=== PATIENT | female | born 1955 | race Caucasian/White ===

== ENCOUNTER 2021-03-31 13:38 | Inpatient (IN) ==
[2021-03-31] MEDS ORDERED: Ondansetron 4 MG/2 ML VIAL IVP PRN (18:02)
[2021-03-31] MEDS ORDERED: Naloxone 0.4 MG/ML INJ IVP PRN (18:02)
[2021-03-31] MEDS ORDERED: Benzonatate 100 MG CAPSULE PO PRN (18:05)
[2021-03-31] MEDS ORDERED: 0.9 % Sodium Chloride 1,000 ML IVC SCH (18:15)
[2021-03-31 19:56] LABS: BUN/Creatinine Ratio 28 (6-26); Blood Urea Nitrogen 15 mg/dL (8-23); Calcium 7.5 mg/dL (8.6-10.3); Carbon Dioxide 20 mEq/L (23-29); Chloride 102 mEq/L (98-107); Glucose 142 mg/dL (70-105); Osmolality,Calculated 273 (280-300); Potassium 3.5 mEq/L (3.5-5.1); Sodium 130 mEq/L (136-145); eGFR For African Americans > 60 (> 60); eGFR For Non-African Americans > 60 (> 60)
[2021-03-31] MEDS: *HR* HYDROcodone/Acet 5/325 mg TABLET PO PRN (20:29)
[2021-03-31] MEDS: Apixaban 5 MG TABLET PO SCH (20:29)
[2021-03-31] MEDS: Acyclovir 200 MG CAPSULE PO SCH (20:29)
[2021-03-31] MEDS: *HR* OxyCODONE Immed Rel 5 MG TABLET PO PRN (21:18)
[2021-04-01] MEDS: *HR* HYDROcodone/Acet 5/325 mg TABLET PO PRN (03:24)
[2021-04-01] MEDS: Morphine Sulfate ER (12 HR) 15 MG TABLET.ER PO SCH ×2 (04:23→17:47)
[2021-04-01 07:13] LABS: Basophils % 0.2 %; Hematocrit 32.6 % (35.3-44.9); Hemoglobin 10.8 g/dL (11.5-15.4); Immature Granulocytes % 0.7 % (0-4); Lymphocytes # 0.1 K/mcL (0.6-4.6); Lymphocytes % 1.1 %; Mean Corpuscular HGB Conc 33.1 g/dL (31.6-35.5); Mean Corpuscular Hemoglobin 27.4 pg (28.0-33.3); Mean Corpuscular Volume 82.7 fL (83.0-100.0); Mean Platelet Volume 10.7 fL (9.4-12.4); Monocytes # 0.3 K/mcL (0.0-1.3); Platelet Count 220 K/mcL (140-400); Red Blood Count 3.94 M/mcL (3.82-4.97); Red Cell Distribution Width 18.2 % (11.5-14.5); White Blood Count 5.4 K/mcL (4.3-11.1)
[2021-04-01] MEDS ORDERED: polyethylene glycoL 3350 17 GM POWD.PACK PO PRN (07:30)
[2021-04-01] MEDS ORDERED: Furosemide 40 MG/4 ML VIAL IVP ONE (07:31)
[2021-04-01 07:35] LABS: BUN/Creatinine Ratio 40 (6-26); Blood Urea Nitrogen 18 mg/dL (8-23); Calcium 7.5 mg/dL (8.6-10.3); Carbon Dioxide 20 mEq/L (23-29); Chloride 106 mEq/L (98-107); Chol/HDL Ratio 3.3 (0-4.9); Cholesterol 128 mg/dL (< 200); Glucose 139 mg/dL (70-105); HDL Cholesterol 39 mg/dL (40-59); LDL Cholesterol,Calculated 71 mg/dL (< 100); Magnesium 2.4 mg/dL (1.6-2.6); Osmolality,Calculated 278 (280-300); Potassium 3.9 mEq/L (3.5-5.1); Sodium 132 mEq/L (136-145); Triglycerides 90 mg/dL (< 150); eGFR For African Americans > 60 (> 60); eGFR For Non-African Americans > 60 (> 60)
[2021-04-01 07:52] LABS: Platelet Estimate Normal (Normal)
[2021-04-01] MEDS: cefTRIAXone 1,000 MG in Water for inj. (sterile) 10 ML IVP SCH (08:45)
[2021-04-01] MEDS: Dexamethasone Sodium Phos/PF 10 MG/ML VIAL IVP SCH (08:46)
[2021-04-01] MEDS: Acyclovir 200 MG CAPSULE PO SCH ×2 (08:47→21:08)
[2021-04-01] MEDS: Apixaban 5 MG TABLET PO SCH ×2 (08:47→20:00)
[2021-04-01] MEDS: Cholecalciferol (D-3) 1,000 UNIT (25MCG) TABLET PO SCH (08:47)
[2021-04-01] MEDS: Azithromycin 500 MG in 0.9 % Sodium Chloride 250 ML IVPB SCH (08:48)
[2021-04-01] MEDS ORDERED: lisinopriL 10 MG TABLET PO SCH (09:00)
[2021-04-01] MEDS ORDERED: Gabapentin 300 MG CAPSULE PO SCH (09:00)
[2021-04-01 09:21] LABS: Albumin 2.9 g/dL (3.5-5.7); Albumin/Globulin Ratio 0.9 (1.1-2.2); Bilirubin,Direct 0.1 mg/dL (0.0-0.2); Bilirubin,Indirect 0.4 mg/dL (0.0-1.0); Bilirubin,Total 0.5 mg/dL (0.3-1.0); Globulin 3.4 g/dL (2.4-3.5); Total Protein 6.3 g/dL (6.4-8.9)
[2021-04-01] MEDS: Pantoprazole 40 MG VIAL IVP SCH (10:29)
[2021-04-01] MEDS: Gabapentin 300 MG CAPSULE PO SCH ×3 (10:30→20:00)
[2021-04-01] MEDS ORDERED: Remdesivir 200 MG in 0.9 % Sodium Chloride 100 ML IVPB ONE (11:00)
[2021-04-01] MEDS: *HR* OxyCODONE Immed Rel 5 MG TABLET PO PRN ×2 (11:51→20:00)
[2021-04-02] MEDS: Acetaminophen 325 MG TABLET PO PRN (02:18)
[2021-04-02] MEDS ORDERED: 0.9 % Sodium Chloride 500 ML IVC ONE (04:26)
[2021-04-02 06:41] LABS: Hematocrit 28.8 % (35.3-44.9); Hemoglobin 9.6 g/dL (11.5-15.4); Lymphocytes # 0.1 K/mcL (0.6-4.6); Lymphocytes % 1.2 %; Mean Corpuscular HGB Conc 33.3 g/dL (31.6-35.5); Mean Corpuscular Hemoglobin 27.4 pg (28.0-33.3); Mean Corpuscular Volume 82.3 fL (83.0-100.0); Mean Platelet Volume 9.8 fL (9.4-12.4); Monocytes # 0.5 K/mcL (0.0-1.3); Monocytes % 9.3 %; Platelet Count 231 K/mcL (140-400); Red Cell Distribution Width 18.4 % (11.5-14.5); Segmented Neutrophils % 88.5 %; White Blood Count 4.9 K/mcL (4.3-11.1)
[2021-04-02 06:42] LABS: Neutrophils # 4.3 K/mcL (1.6-8.9)
[2021-04-02 06:57] LABS: Albumin 2.6 g/dL (3.5-5.7); Albumin/Globulin Ratio 0.9 (1.1-2.2); Bilirubin,Direct 0.1 mg/dL (0.0-0.2); Bilirubin,Indirect 0.3 mg/dL (0.0-1.0); Bilirubin,Total 0.4 mg/dL (0.3-1.0); Globulin 2.9 g/dL (2.4-3.5); Total Protein 5.5 g/dL (6.4-8.9)
[2021-04-02 07:01] LABS: Alanine Aminotransferase 20 Units/L (7-52); Albumin 2.6 g/dL (3.5-5.7); Albumin/Globulin Ratio 0.9 (1.1-2.2); Alkaline Phosphatase 63 Units/L (34-104); Aspartate Amino Transferase 25 Units/L (13-39); BUN/Creatinine Ratio 34 (6-26); Bilirubin,Total 0.3 mg/dL (0.3-1.0); Blood Urea Nitrogen 21 mg/dL (8-23); Carbon Dioxide 22 mEq/L (23-29); Chloride 104 mEq/L (98-107); Globulin 2.9 g/dL (2.4-3.5); Glucose 129 mg/dL (70-105); Osmolality,Calculated 281 (280-300); Potassium 3.3 mEq/L (3.5-5.1); Sodium 133 mEq/L (136-145); Total Protein 5.5 g/dL (6.4-8.9); eGFR For African Americans > 60 (> 60); eGFR For Non-African Americans > 60 (> 60)
[2021-04-02] MEDS: cefTRIAXone 1,000 MG in Water for inj. (sterile) 10 ML IVP SCH (08:00)
[2021-04-02] MEDS: Pantoprazole 40 MG VIAL IVP SCH (08:00)
[2021-04-02] MEDS: Azithromycin 500 MG in 0.9 % Sodium Chloride 250 ML IVPB SCH (08:00)
[2021-04-02] MEDS: Cholecalciferol (D-3) 1,000 UNIT (25MCG) TABLET PO SCH (08:01)
[2021-04-02] MEDS: Apixaban 5 MG TABLET PO SCH ×2 (08:01→20:59)
[2021-04-02] MEDS: *HR* OxyCODONE Immed Rel 5 MG TABLET PO PRN ×3 (08:01→20:59)
[2021-04-02] MEDS: Dexamethasone Sodium Phos/PF 10 MG/ML VIAL IVP SCH (08:02)
[2021-04-02] MEDS: Gabapentin 300 MG CAPSULE PO SCH ×3 (08:05→20:59)
[2021-04-02] MEDS: Acyclovir 200 MG CAPSULE PO SCH ×2 (08:12→20:59)
[2021-04-02] MEDS ORDERED: Potassium Chloride Elixir 20 MEQ/15 ML UDC PO ONE (08:25)
[2021-04-02] MEDS: Remdesivir 100 MG in 0.9 % Sodium Chloride 100 ML IVPB SCH (11:26)
[2021-04-02] MEDS: *HR* HYDROcodone/Acet 5/325 mg TABLET PO PRN ×2 (11:27→19:20)
[2021-04-03] MEDS: *HR* HYDROcodone/Acet 5/325 mg TABLET PO PRN ×2 (01:28→14:43)
[2021-04-03] MEDS: *HR* OxyCODONE Immed Rel 5 MG TABLET PO PRN ×3 (03:40→20:21)
[2021-04-03 08:28] LABS: Eosinophils % 0.6 %; Hematocrit 29.7 % (35.3-44.9); Hemoglobin 9.8 g/dL (11.5-15.4); Lymphocytes # 0.1 K/mcL (0.6-4.6); Lymphocytes % 3.2 %; Mean Corpuscular Hemoglobin 27.3 pg (28.0-33.3); Mean Corpuscular Volume 82.7 fL (83.0-100.0); Mean Platelet Volume 10.1 fL (9.4-12.4); Monocytes # 0.4 K/mcL (0.0-1.3); Monocytes % 12.7 %; Neutrophils # 2.6 K/mcL (1.6-8.9); Platelet Count 252 K/mcL (140-400); Red Blood Count 3.59 M/mcL (3.82-4.97); Red Cell Distribution Width 18.4 % (11.5-14.5); Segmented Neutrophils % 82.5 %; White Blood Count 3.1 K/mcL (4.3-11.1)
[2021-04-03 08:47] LABS: Albumin 2.6 g/dL (3.5-5.7); Albumin/Globulin Ratio 0.9 (1.1-2.2); Bilirubin,Indirect 0.4 mg/dL (0.0-1.0); Bilirubin,Total 0.4 mg/dL (0.3-1.0); Globulin 2.8 g/dL (2.4-3.5); Total Protein 5.4 g/dL (6.4-8.9)
[2021-04-03 08:48] LABS: BUN/Creatinine Ratio 37 (6-26); Blood Urea Nitrogen 17 mg/dL (8-23); Calcium 7.1 mg/dL (8.6-10.3); Carbon Dioxide 24 mEq/L (23-29); Chloride 106 mEq/L (98-107); Glucose 105 mg/dL (70-105); Osmolality,Calculated 280 (280-300); Sodium 134 mEq/L (136-145); eGFR For African Americans > 60 (> 60); eGFR For Non-African Americans > 60 (> 60)
[2021-04-03] MEDS: Azithromycin 500 MG in 0.9 % Sodium Chloride 250 ML IVPB SCH (08:53)
[2021-04-03] MEDS: Pantoprazole 40 MG VIAL IVP SCH (08:53)
[2021-04-03] MEDS: Acyclovir 200 MG CAPSULE PO SCH ×2 (08:54→20:13)
[2021-04-03] MEDS: Apixaban 5 MG TABLET PO SCH ×2 (08:54→20:13)
[2021-04-03] MEDS: Dexamethasone Sodium Phos/PF 10 MG/ML VIAL IVP SCH (08:54)
[2021-04-03] MEDS: cefTRIAXone 1,000 MG in Water for inj. (sterile) 10 ML IVP SCH (08:54)
[2021-04-03] MEDS: Cholecalciferol (D-3) 1,000 UNIT (25MCG) TABLET PO SCH (08:54)
[2021-04-03] MEDS: Gabapentin 300 MG CAPSULE PO SCH ×3 (08:58→20:13)
[2021-04-03 09:41] LABS: Platelet Estimate Normal (Normal)
[2021-04-03 09:42] LABS: Anisocytosis 1+ (Not Present); Schistocytes 1+ (Not Present)
[2021-04-03] MEDS: Remdesivir 100 MG in 0.9 % Sodium Chloride 100 ML IVPB SCH (10:25)
[2021-04-03] MEDS: Morphine Sulfate ER (12 HR) 15 MG TABLET.ER PO SCH (17:16)
[2021-04-04 05:05] LABS: Hematocrit 31.6 % (35.3-44.9); Hemoglobin 10.6 g/dL (11.5-15.4); Immature Granulocytes % 0.7 % (0-4); Lymphocytes # 0.1 K/mcL (0.6-4.6); Lymphocytes % 3.7 %; Mean Corpuscular HGB Conc 33.5 g/dL (31.6-35.5); Mean Corpuscular Hemoglobin 27.7 pg (28.0-33.3); Mean Corpuscular Volume 82.7 fL (83.0-100.0); Mean Platelet Volume 10.3 fL (9.4-12.4); Monocytes # 0.3 K/mcL (0.0-1.3); Monocytes % 10.4 %; Neutrophils # 2.5 K/mcL (1.6-8.9); Platelet Count 289 K/mcL (140-400); Red Blood Count 3.82 M/mcL (3.82-4.97); Red Cell Distribution Width 18.5 % (11.5-14.5); Segmented Neutrophils % 84.2 %
[2021-04-04 05:26] LABS: BUN/Creatinine Ratio 34 (6-26); Blood Urea Nitrogen 15 mg/dL (8-23); Calcium 7.1 mg/dL (8.6-10.3); Carbon Dioxide 21 mEq/L (23-29); Chloride 106 mEq/L (98-107); Glucose 95 mg/dL (70-105); Osmolality,Calculated 277 (280-300); Potassium 4.8 mEq/L (3.5-5.1); Sodium 133 mEq/L (136-145); eGFR For African Americans > 60 (> 60); eGFR For Non-African Americans > 60 (> 60)
[2021-04-04 05:28] LABS: Albumin 2.6 g/dL (3.5-5.7); Albumin/Globulin Ratio 0.9 (1.1-2.2); Bilirubin,Direct 0.1 mg/dL (0.0-0.2); Bilirubin,Indirect 0.4 mg/dL (0.0-1.0); Bilirubin,Total 0.5 mg/dL (0.3-1.0); Total Protein 5.6 g/dL (6.4-8.9)
[2021-04-04] MEDS: Morphine Sulfate ER (12 HR) 15 MG TABLET.ER PO SCH ×2 (05:42→17:26)
[2021-04-04] MEDS: Dexamethasone Sodium Phos/PF 10 MG/ML VIAL IVP SCH (10:19)
[2021-04-04] MEDS: Azithromycin 500 MG in 0.9 % Sodium Chloride 250 ML IVPB SCH (10:19)
[2021-04-04] MEDS: Furosemide 20 MG/2 ML VIAL IVP SCH ×2 (10:20→21:23)
[2021-04-04] MEDS: cefTRIAXone 1,000 MG in Water for inj. (sterile) 10 ML IVP SCH (10:20)
[2021-04-04] MEDS: Pantoprazole 40 MG VIAL IVP SCH (10:20)
[2021-04-04] MEDS: Acyclovir 200 MG CAPSULE PO SCH ×2 (10:21→21:22)
[2021-04-04] MEDS: Apixaban 5 MG TABLET PO SCH ×2 (10:21→21:23)
[2021-04-04] MEDS: *HR* OxyCODONE Immed Rel 5 MG TABLET PO PRN ×2 (10:21→18:28)
[2021-04-04] MEDS: Cholecalciferol (D-3) 1,000 UNIT (25MCG) TABLET PO SCH (10:21)
[2021-04-04] MEDS: Gabapentin 300 MG CAPSULE PO SCH ×3 (10:24→21:23)
[2021-04-04] MEDS ORDERED: Dexamethasone Sodium Phos/PF 10 MG/ML VIAL IVP ONE (10:31)
[2021-04-04] MEDS: Ipratropium 1 PUFF INHALER IH SCH ×3 (11:02→20:07)
[2021-04-04 11:48] LABS: ABG Base Excess -1 mEq/L (-2 to 3); ABG HCO3 20 mEq/L (21-27); ABG Oxygen Saturation 92 % (95-98); ABG PCO2 23 mmHg (35-45); ABG PH 7.54 pH Units (7.32-7.45); ABG PO2 55 mmHg (85-104); ABG TCO2 20 mEq/L (20-26)
[2021-04-04] MEDS: Remdesivir 100 MG in 0.9 % Sodium Chloride 100 ML IVPB SCH (12:15)
[2021-04-04] MEDS: *HR* HYDROcodone/Acet 5/325 mg TABLET PO PRN ×2 (14:16→21:31)
[2021-04-04] MEDS ORDERED: Isovue-370 500 ML BOTTLE IVP ONE (16:55)
[2021-04-04] MEDS: Zinc Sulfate 220 MG CAPSULE PO SCH (18:25)
[2021-04-04] MEDS: Thiamine (B-1) 100 MG TABLET PO SCH (18:25)
[2021-04-04] MEDS ORDERED: Acyclovir 200 MG CAPSULE PO SCH (21:00)
[2021-04-05] MEDS: Ipratropium 1 PUFF INHALER IH SCH ×6 (00:13→20:23)
[2021-04-05] MEDS: *HR* OxyCODONE Immed Rel 5 MG TABLET PO PRN ×2 (02:55→12:30)
[2021-04-05 05:15] LABS: Basophils % 0.3 %; Hematocrit 32.4 % (35.3-44.9); Hemoglobin 10.9 g/dL (11.5-15.4); Immature Granulocytes % 0.6 % (0-4); Lymphocytes # 0.1 K/mcL (0.6-4.6); Lymphocytes % 2.8 %; Mean Corpuscular HGB Conc 33.6 g/dL (31.6-35.5); Mean Corpuscular Hemoglobin 27.7 pg (28.0-33.3); Mean Corpuscular Volume 82.4 fL (83.0-100.0); Mean Platelet Volume 9.8 fL (9.4-12.4); Monocytes # 0.4 K/mcL (0.0-1.3); Monocytes % 11.3 %; Neutrophils # 2.7 K/mcL (1.6-8.9); Platelet Count 269 K/mcL (140-400); Red Blood Count 3.93 M/mcL (3.82-4.97); Red Cell Distribution Width 18.3 % (11.5-14.5); White Blood Count 3.2 K/mcL (4.3-11.1)
[2021-04-05 05:33] LABS: Albumin 2.7 g/dL (3.5-5.7); Albumin/Globulin Ratio 0.9 (1.1-2.2); Bilirubin,Direct 0.1 mg/dL (0.0-0.2); Bilirubin,Indirect 0.4 mg/dL (0.0-1.0); Bilirubin,Total 0.5 mg/dL (0.3-1.0); Total Protein 5.7 g/dL (6.4-8.9)
[2021-04-05 05:34] LABS: Alanine Aminotransferase 17 Units/L (7-52); Albumin 2.8 g/dL (3.5-5.7); Alkaline Phosphatase 69 Units/L (34-104); Aspartate Amino Transferase 12 Units/L (13-39); BUN/Creatinine Ratio 44 (6-26); Bilirubin,Total 0.5 mg/dL (0.3-1.0); Blood Urea Nitrogen 20 mg/dL (8-23); Calcium 7.4 mg/dL (8.6-10.3); Carbon Dioxide 21 mEq/L (23-29); Chloride 104 mEq/L (98-107); Globulin 2.8 g/dL (2.4-3.5); Glucose 140 mg/dL (70-105); Osmolality,Calculated 281 (280-300); Potassium 3.7 mEq/L (3.5-5.1); Sodium 133 mEq/L (136-145); Total Protein 5.6 g/dL (6.4-8.9); eGFR For African Americans > 60 (> 60); eGFR For Non-African Americans > 60 (> 60)
[2021-04-05] MEDS: Morphine Sulfate ER (12 HR) 15 MG TABLET.ER PO SCH ×2 (05:46→17:05)
[2021-04-05 05:50] LABS: Anisocytosis 1+ (Not Present); Platelet Estimate Normal (Normal)
[2021-04-05] MEDS: Azithromycin 500 MG in 0.9 % Sodium Chloride 250 ML IVPB SCH (08:51)
[2021-04-05] MEDS: Pantoprazole 40 MG VIAL IVP SCH (08:52)
[2021-04-05] MEDS: cefTRIAXone 1,000 MG in Water for inj. (sterile) 10 ML IVP SCH (08:52)
[2021-04-05] MEDS: Acyclovir 200 MG CAPSULE PO SCH ×2 (08:52→19:50)
[2021-04-05] MEDS: Dexamethasone Sodium Phos/PF 10 MG/ML VIAL IVP SCH (08:53)
[2021-04-05] MEDS: *HR* HYDROcodone/Acet 5/325 mg TABLET PO PRN (08:53)
[2021-04-05] MEDS: Apixaban 5 MG TABLET PO SCH ×2 (08:53→19:50)
[2021-04-05] MEDS: Thiamine (B-1) 100 MG TABLET PO SCH (08:53)
[2021-04-05] MEDS: Zinc Sulfate 220 MG CAPSULE PO SCH (08:53)
[2021-04-05] MEDS: Cholecalciferol (D-3) 1,000 UNIT (25MCG) TABLET PO SCH (08:53)
[2021-04-05] MEDS: Furosemide 20 MG/2 ML VIAL IVP SCH ×2 (08:53→19:51)
[2021-04-05] MEDS: Gabapentin 300 MG CAPSULE PO SCH ×3 (09:10→19:51)
[2021-04-05] MEDS: Remdesivir 100 MG in 0.9 % Sodium Chloride 100 ML IVPB SCH (12:22)
[2021-04-05] MEDS ORDERED: *HR* OxyCODONE Immed Rel 5 MG TABLET PO PRN (15:58)
[2021-04-06] MEDS: Ipratropium 1 PUFF INHALER IH SCH ×7 (04:29→23:15)
[2021-04-06] MEDS: Morphine Sulfate ER (12 HR) 15 MG TABLET.ER PO SCH ×2 (05:17→17:57)
[2021-04-06 06:23] LABS: Eosinophils % 0.2 %; Hematocrit 31.7 % (35.3-44.9); Hemoglobin 10.6 g/dL (11.5-15.4); Immature Granulocytes % 0.6 % (0-4); Lymphocytes # 0.1 K/mcL (0.6-4.6); Lymphocytes % 2.6 %; Mean Corpuscular HGB Conc 33.4 g/dL (31.6-35.5); Mean Corpuscular Volume 80.7 fL (83.0-100.0); Mean Platelet Volume 10.6 fL (9.4-12.4); Monocytes # 0.4 K/mcL (0.0-1.3); Monocytes % 9.4 %; Neutrophils # 4.1 K/mcL (1.6-8.9); Platelet Count 289 K/mcL (140-400); Red Blood Count 3.93 M/mcL (3.82-4.97); Red Cell Distribution Width 18.4 % (11.5-14.5); Segmented Neutrophils % 87.2 %; White Blood Count 4.7 K/mcL (4.3-11.1)
[2021-04-06 06:46] LABS: Albumin 2.8 g/dL (3.5-5.7); Bilirubin,Direct 0.1 mg/dL (0.0-0.2); Bilirubin,Indirect 0.5 mg/dL (0.0-1.0); Bilirubin,Total 0.6 mg/dL (0.3-1.0); Globulin 2.8 g/dL (2.4-3.5); Total Protein 5.6 g/dL (6.4-8.9)
[2021-04-06 06:49] LABS: BUN/Creatinine Ratio 53 (6-26); Blood Urea Nitrogen 24 mg/dL (8-23); Calcium 7.7 mg/dL (8.6-10.3); Carbon Dioxide 25 mEq/L (23-29); Chloride 104 mEq/L (98-107); Glucose 110 mg/dL (70-105); Osmolality,Calculated 285 (280-300); Potassium 3.5 mEq/L (3.5-5.1); Sodium 135 mEq/L (136-145); eGFR For African Americans > 60 (> 60); eGFR For Non-African Americans > 60 (> 60)
[2021-04-06] MEDS: Azithromycin 500 MG in 0.9 % Sodium Chloride 250 ML IVPB SCH (09:39)
[2021-04-06] MEDS: Gabapentin 300 MG CAPSULE PO SCH ×3 (09:40→20:22)
[2021-04-06] MEDS: Dexamethasone Sodium Phos/PF 10 MG/ML VIAL IVP SCH (09:40)
[2021-04-06] MEDS: Zinc Sulfate 220 MG CAPSULE PO SCH (09:41)
[2021-04-06] MEDS: Apixaban 5 MG TABLET PO SCH ×2 (09:41→20:22)
[2021-04-06] MEDS: Cholecalciferol (D-3) 1,000 UNIT (25MCG) TABLET PO SCH (09:41)
[2021-04-06] MEDS: Acyclovir 200 MG CAPSULE PO SCH ×2 (09:41→20:21)
[2021-04-06] MEDS: Thiamine (B-1) 100 MG TABLET PO SCH (09:41)
[2021-04-06] MEDS: cefTRIAXone 1,000 MG in Water for inj. (sterile) 10 ML IVP SCH (09:47)
[2021-04-06] MEDS: Furosemide 20 MG/2 ML VIAL IVP SCH (10:33)
[2021-04-06 12:12] LABS: ABG Base Excess 1 mEq/L (-2 to 3); ABG HCO3 23 mEq/L (21-27); ABG Oxygen Saturation 93 % (95-98); ABG PCO2 28 mmHg (35-45); ABG PH 7.53 pH Units (7.32-7.45); ABG PO2 57 mmHg (85-104); ABG TCO2 24 mEq/L (20-26)
[2021-04-06] MEDS: *HR* OxyCODONE Immed Rel 5 MG TABLET PO PRN ×2 (12:49→20:21)
[2021-04-06] MEDS: Furosemide 40 MG/4 ML VIAL IVP SCH (20:23)
[2021-04-07] MEDS: *HR* OxyCODONE Immed Rel 5 MG TABLET PO PRN ×3 (02:32→21:34)
[2021-04-07 03:27] LABS: Hematocrit 33.6 % (35.3-44.9); Hemoglobin 10.7 g/dL (11.5-15.4); Lymphocytes # 0.1 K/mcL (0.6-4.6); Lymphocytes % 2.9 %; Mean Corpuscular HGB Conc 31.8 g/dL (31.6-35.5); Mean Corpuscular Volume 81.8 fL (83.0-100.0); Mean Platelet Volume 10.5 fL (9.4-12.4); Monocytes # 0.4 K/mcL (0.0-1.3); Monocytes % 8.6 %; Neutrophils # 3.6 K/mcL (1.6-8.9); Platelet Count 274 K/mcL (140-400); Red Blood Count 4.11 M/mcL (3.82-4.97); Red Cell Distribution Width 18.5 % (11.5-14.5); Segmented Neutrophils % 87.5 %; White Blood Count 4.1 K/mcL (4.3-11.1)
[2021-04-07] MEDS: Ipratropium 1 PUFF INHALER IH SCH ×6 (03:45→23:21)
[2021-04-07 03:47] LABS: BUN/Creatinine Ratio 59 (6-26); Blood Urea Nitrogen 27 mg/dL (8-23); Calcium 7.4 mg/dL (8.6-10.3); Carbon Dioxide 22 mEq/L (23-29); Chloride 102 mEq/L (98-107); Glucose 122 mg/dL (70-105); Osmolality,Calculated 284 (280-300); Potassium 3.9 mEq/L (3.5-5.1); Sodium 134 mEq/L (136-145); eGFR For African Americans > 60 (> 60); eGFR For Non-African Americans > 60 (> 60)
[2021-04-07] MEDS: Morphine Sulfate ER (12 HR) 15 MG TABLET.ER PO SCH ×3 (05:25→19:43)
[2021-04-07 06:03] LABS: Anisocytosis 1+ (Not Present); Platelet Estimate Normal (Normal); Poikilocytosis 1+ (Not Present)
[2021-04-07] MEDS: Azithromycin 500 MG in 0.9 % Sodium Chloride 250 ML IVPB SCH (07:49)
[2021-04-07] MEDS: cefTRIAXone 1,000 MG in Water for inj. (sterile) 10 ML IVP SCH (07:49)
[2021-04-07] MEDS: Furosemide 40 MG/4 ML VIAL IVP SCH ×2 (07:49→21:33)
[2021-04-07] MEDS: Dexamethasone Sodium Phos/PF 10 MG/ML VIAL IVP SCH (07:51)
[2021-04-07] MEDS: Zinc Sulfate 220 MG CAPSULE PO SCH (07:51)
[2021-04-07] MEDS: Acyclovir 200 MG CAPSULE PO SCH ×2 (07:51→21:34)
[2021-04-07] MEDS: Apixaban 5 MG TABLET PO SCH ×2 (07:51→21:35)
[2021-04-07] MEDS: Cholecalciferol (D-3) 1,000 UNIT (25MCG) TABLET PO SCH (07:51)
[2021-04-07] MEDS: Thiamine (B-1) 100 MG TABLET PO SCH (07:51)
[2021-04-07] MEDS: Gabapentin 300 MG CAPSULE PO SCH ×3 (07:53→21:34)
[2021-04-07] MEDS ORDERED: 0.9 % Sodium Chloride 500 ML IVC ONE ×2 (11:12→14:44)
[2021-04-07] MEDS ORDERED: 0.9 % Sodium Chloride 1,000 ML IVC SCH (11:15)
[2021-04-08] MEDS: Ipratropium 1 PUFF INHALER IH SCH ×6 (03:41→23:09)
[2021-04-08] MEDS: *HR* OxyCODONE Immed Rel 5 MG TABLET PO PRN ×4 (03:53→22:03)
[2021-04-08 04:45] LABS: Hematocrit 31.5 % (35.3-44.9); Hemoglobin 10.5 g/dL (11.5-15.4); Immature Granulocytes % 0.8 % (0-4); Lymphocytes # 0.2 K/mcL (0.6-4.6); Lymphocytes % 2.9 %; Mean Corpuscular HGB Conc 33.3 g/dL (31.6-35.5); Mean Corpuscular Hemoglobin 27.1 pg (28.0-33.3); Mean Corpuscular Volume 81.4 fL (83.0-100.0); Mean Platelet Volume 10.6 fL (9.4-12.4); Monocytes # 0.3 K/mcL (0.0-1.3); Monocytes % 6.4 %; Platelet Count 257 K/mcL (140-400); Red Blood Count 3.87 M/mcL (3.82-4.97); Red Cell Distribution Width 18.2 % (11.5-14.5); Segmented Neutrophils % 89.9 %; White Blood Count 5.2 K/mcL (4.3-11.1)
[2021-04-08 04:47] LABS: Neutrophils # 4.7 K/mcL (1.6-8.9)
[2021-04-08 04:54] LABS: BUN/Creatinine Ratio 61 (6-26); Blood Urea Nitrogen 23 mg/dL (8-23); Carbon Dioxide 24 mEq/L (23-29); Chloride 104 mEq/L (98-107); Glucose 106 mg/dL (70-105); Osmolality,Calculated 286 (280-300); Potassium 3.6 mEq/L (3.5-5.1); Sodium 136 mEq/L (136-145); eGFR For African Americans > 60 (> 60); eGFR For Non-African Americans > 60 (> 60)
[2021-04-08 05:52] LABS: Anisocytosis 1+ (Not Present); Platelet Estimate Normal (Normal)
[2021-04-08] MEDS: Morphine Sulfate ER (12 HR) 15 MG TABLET.ER PO SCH ×2 (05:58→17:52)
[2021-04-08] MEDS: Cholecalciferol (D-3) 1,000 UNIT (25MCG) TABLET PO SCH (09:24)
[2021-04-08] MEDS: Zinc Sulfate 220 MG CAPSULE PO SCH (09:24)
[2021-04-08] MEDS: Thiamine (B-1) 100 MG TABLET PO SCH (09:24)
[2021-04-08] MEDS: Dexamethasone Sodium Phos/PF 10 MG/ML VIAL IVP SCH (09:24)
[2021-04-08] MEDS: Gabapentin 300 MG CAPSULE PO SCH ×3 (09:25→22:04)
[2021-04-08] MEDS: Acyclovir 200 MG CAPSULE PO SCH ×2 (09:25→22:04)
[2021-04-08] MEDS: Furosemide 40 MG/4 ML VIAL IVP SCH ×2 (09:25→22:03)
[2021-04-08] MEDS: Apixaban 5 MG TABLET PO SCH ×2 (09:25→22:03)
[2021-04-09] MEDS: Ipratropium 1 PUFF INHALER IH SCH ×6 (03:55→23:23)
[2021-04-09 05:08] LABS: Basophils % 0.2 %; Eosinophils % 0.2 %; Hematocrit 33.4 % (35.3-44.9); Hemoglobin 11.3 g/dL (11.5-15.4); Immature Granulocytes % 0.8 % (0-4); Lymphocytes # 0.2 K/mcL (0.6-4.6); Lymphocytes % 2.7 %; Mean Corpuscular HGB Conc 33.8 g/dL (31.6-35.5); Mean Corpuscular Hemoglobin 27.4 pg (28.0-33.3); Mean Corpuscular Volume 81.1 fL (83.0-100.0); Monocytes # 0.4 K/mcL (0.0-1.3); Monocytes % 6.4 %; Platelet Count 214 K/mcL (140-400); Red Blood Count 4.12 M/mcL (3.82-4.97); Red Cell Distribution Width 17.9 % (11.5-14.5); Segmented Neutrophils % 89.7 %; White Blood Count 6.3 K/mcL (4.3-11.1)
[2021-04-09 05:09] LABS: Neutrophils # 5.7 K/mcL (1.6-8.9)
[2021-04-09 05:27] LABS: BUN/Creatinine Ratio 58 (6-26); Blood Urea Nitrogen 26 mg/dL (8-23); Calcium 7.4 mg/dL (8.6-10.3); Carbon Dioxide 27 mEq/L (23-29); Chloride 100 mEq/L (98-107); Glucose 148 mg/dL (70-105); Osmolality,Calculated 284 (280-300); Potassium 3.5 mEq/L (3.5-5.1); Sodium 133 mEq/L (136-145); eGFR For African Americans > 60 (> 60); eGFR For Non-African Americans > 60 (> 60)
[2021-04-09] MEDS: Morphine Sulfate ER (12 HR) 15 MG TABLET.ER PO SCH ×2 (06:05→18:16)
[2021-04-09] MEDS: Dexamethasone Sodium Phos/PF 10 MG/ML VIAL IVP SCH (08:51)
[2021-04-09] MEDS: Furosemide 40 MG/4 ML VIAL IVP SCH ×2 (08:51→19:59)
[2021-04-09] MEDS: Acyclovir 200 MG CAPSULE PO SCH ×2 (08:52→19:58)
[2021-04-09] MEDS: Cholecalciferol (D-3) 1,000 UNIT (25MCG) TABLET PO SCH (08:52)
[2021-04-09] MEDS: *HR* OxyCODONE Immed Rel 5 MG TABLET PO PRN ×3 (08:52→23:33)
[2021-04-09] MEDS: Thiamine (B-1) 100 MG TABLET PO SCH (08:52)
[2021-04-09] MEDS: Apixaban 5 MG TABLET PO SCH ×2 (08:53→19:58)
[2021-04-09] MEDS: Zinc Sulfate 220 MG CAPSULE PO SCH (08:53)
[2021-04-09] MEDS: Gabapentin 300 MG CAPSULE PO SCH ×4 (09:07→20:00)
[2021-04-10 02:53] LABS: Basophils % 0.2 %; Eosinophils % 0.2 %; Hematocrit 36.4 % (35.3-44.9); Hemoglobin 11.6 g/dL (11.5-15.4); Lymphocytes # 0.2 K/mcL (0.6-4.6); Lymphocytes % 2.7 %; Mean Corpuscular HGB Conc 31.9 g/dL (31.6-35.5); Mean Corpuscular Volume 84.8 fL (83.0-100.0); Mean Platelet Volume 10.7 fL (9.4-12.4); Monocytes # 0.4 K/mcL (0.0-1.3); Platelet Count 207 K/mcL (140-400); Red Blood Count 4.29 M/mcL (3.82-4.97); Red Cell Distribution Width 18.6 % (11.5-14.5); Segmented Neutrophils % 88.9 %; White Blood Count 5.9 K/mcL (4.3-11.1)
[2021-04-10 03:07] LABS: Neutrophils # 5.3 K/mcL (1.6-8.9)
[2021-04-10 03:18] LABS: BUN/Creatinine Ratio 48 (6-26); Blood Urea Nitrogen 23 mg/dL (8-23); Calcium 7.3 mg/dL (8.6-10.3); Carbon Dioxide 24 mEq/L (23-29); Chloride 98 mEq/L (98-107); Glucose 117 mg/dL (70-105); Osmolality,Calculated 279 (280-300); Potassium 3.8 mEq/L (3.5-5.1); Sodium 132 mEq/L (136-145); eGFR For African Americans > 60 (> 60); eGFR For Non-African Americans > 60 (> 60)
[2021-04-10 04:07] LABS: Anisocytosis 1+ (Not Present); Platelet Estimate Normal (Normal)
[2021-04-10] MEDS: Ipratropium 1 PUFF INHALER IH SCH ×6 (04:07→23:28)
[2021-04-10] MEDS: Morphine Sulfate ER (12 HR) 15 MG TABLET.ER PO SCH ×2 (05:50→17:41)
[2021-04-10] MEDS: Apixaban 5 MG TABLET PO SCH ×2 (07:52→20:25)
[2021-04-10] MEDS: Cholecalciferol (D-3) 1,000 UNIT (25MCG) TABLET PO SCH (07:54)
[2021-04-10] MEDS: Zinc Sulfate 220 MG CAPSULE PO SCH (07:54)
[2021-04-10] MEDS: Gabapentin 300 MG CAPSULE PO SCH ×3 (07:54→20:25)
[2021-04-10] MEDS: Thiamine (B-1) 100 MG TABLET PO SCH (07:54)
[2021-04-10] MEDS: Acyclovir 200 MG CAPSULE PO SCH ×2 (07:56→20:24)
[2021-04-10] MEDS: Dexamethasone Sodium Phos/PF 10 MG/ML VIAL IVP SCH (07:58)
[2021-04-10] MEDS: *HR* OxyCODONE Immed Rel 5 MG TABLET PO PRN ×3 (08:07→21:56)
[2021-04-10] MEDS: Furosemide 40 MG/4 ML VIAL IVP SCH ×2 (10:58→20:25)
[2021-04-11 02:49] LABS: Basophils % 0.1 %; Eosinophils % 0.4 %; Hematocrit 34.7 % (35.3-44.9); Hemoglobin 11.7 g/dL (11.5-15.4); Immature Granulocytes % 1.2 % (0-4); Lymphocytes # 0.2 K/mcL (0.6-4.6); Lymphocytes % 2.8 %; Mean Corpuscular HGB Conc 33.7 g/dL (31.6-35.5); Mean Corpuscular Hemoglobin 27.5 pg (28.0-33.3); Mean Corpuscular Volume 81.6 fL (83.0-100.0); Mean Platelet Volume 10.4 fL (9.4-12.4); Monocytes # 0.6 K/mcL (0.0-1.3); Monocytes % 7.1 %; Neutrophils # 7.5 K/mcL (1.6-8.9); Platelet Count 220 K/mcL (140-400); Red Blood Count 4.25 M/mcL (3.82-4.97); Red Cell Distribution Width 17.9 % (11.5-14.5); Segmented Neutrophils % 88.4 %; White Blood Count 8.4 K/mcL (4.3-11.1)
[2021-04-11 03:13] LABS: BUN/Creatinine Ratio 47 (6-26); Blood Urea Nitrogen 25 mg/dL (8-23); Calcium 7.8 mg/dL (8.6-10.3); Carbon Dioxide 27 mEq/L (23-29); Chloride 97 mEq/L (98-107); Glucose 129 mg/dL (70-105); Osmolality,Calculated 282 (280-300); Potassium 3.6 mEq/L (3.5-5.1); Sodium 133 mEq/L (136-145); eGFR For African Americans > 60 (> 60); eGFR For Non-African Americans > 60 (> 60)
[2021-04-11] MEDS: Ipratropium 1 PUFF INHALER IH SCH ×6 (03:56→23:48)
[2021-04-11] MEDS: Morphine Sulfate ER (12 HR) 15 MG TABLET.ER PO SCH ×2 (05:55→18:44)
[2021-04-11] MEDS: *HR* OxyCODONE Immed Rel 5 MG TABLET PO PRN ×2 (09:25→19:20)
[2021-04-11] MEDS: Cholecalciferol (D-3) 1,000 UNIT (25MCG) TABLET PO SCH (09:27)
[2021-04-11] MEDS: Apixaban 5 MG TABLET PO SCH ×2 (09:27→21:21)
[2021-04-11] MEDS: Thiamine (B-1) 100 MG TABLET PO SCH (09:27)
[2021-04-11] MEDS: Acyclovir 200 MG CAPSULE PO SCH ×2 (09:27→21:20)
[2021-04-11] MEDS: Dexamethasone Sodium Phos/PF 10 MG/ML VIAL IVP SCH (09:28)
[2021-04-11] MEDS: Zinc Sulfate 220 MG CAPSULE PO SCH (09:28)
[2021-04-11] MEDS: Furosemide 40 MG/4 ML VIAL IVP SCH (09:29)
[2021-04-11] MEDS: Gabapentin 300 MG CAPSULE PO SCH ×3 (09:41→21:21)
[2021-04-11] MEDS: *HR* LORazepam 1 MG TABLET PO PRN ×2 (11:41→18:44)
[2021-04-11] MEDS: Furosemide 20 MG/2 ML VIAL IVP SCH (21:20)
[2021-04-12 01:18] LABS: Basophils % 0.1 %; Eosinophils % 0.1 %; Hematocrit 36.1 % (35.3-44.9); Hemoglobin 11.7 g/dL (11.5-15.4); Immature Granulocytes % 1.6 % (0-4); Lymphocytes # 0.2 K/mcL (0.6-4.6); Mean Corpuscular HGB Conc 32.4 g/dL (31.6-35.5); Mean Corpuscular Hemoglobin 26.2 pg (28.0-33.3); Mean Corpuscular Volume 80.8 fL (83.0-100.0); Mean Platelet Volume 10.5 fL (9.4-12.4); Monocytes # 0.5 K/mcL (0.0-1.3); Monocytes % 5.7 %; Platelet Count 242 K/mcL (140-400); Red Blood Count 4.47 M/mcL (3.82-4.97); Red Cell Distribution Width 17.8 % (11.5-14.5); Segmented Neutrophils % 90.5 %; White Blood Count 8.9 K/mcL (4.3-11.1)
[2021-04-12 01:21] LABS: Neutrophils # 8.1 K/mcL (1.6-8.9)
[2021-04-12 01:23] LABS: Platelet Estimate Normal (Normal)
[2021-04-12 01:38] LABS: BUN/Creatinine Ratio 52 (6-26); Blood Urea Nitrogen 23 mg/dL (8-23); Carbon Dioxide 30 mEq/L (23-29); Chloride 96 mEq/L (98-107); Glucose 135 mg/dL (70-105); Osmolality,Calculated 284 (280-300); Potassium 3.6 mEq/L (3.5-5.1); Sodium 134 mEq/L (136-145); eGFR For African Americans > 60 (> 60); eGFR For Non-African Americans > 60 (> 60)
[2021-04-12] MEDS: Ipratropium 1 PUFF INHALER IH SCH ×6 (03:34→23:16)
[2021-04-12] MEDS: Morphine Sulfate ER (12 HR) 15 MG TABLET.ER PO SCH ×2 (05:03→17:55)
[2021-04-12] MEDS: Dexamethasone Sodium Phos/PF 10 MG/ML VIAL IVP SCH (07:42)
[2021-04-12] MEDS: Furosemide 40 MG/4 ML VIAL IVP SCH (07:42)
[2021-04-12] MEDS: *HR* OxyCODONE Immed Rel 5 MG TABLET PO PRN ×3 (07:45→23:39)
[2021-04-12] MEDS: Cholecalciferol (D-3) 1,000 UNIT (25MCG) TABLET PO SCH (07:45)
[2021-04-12] MEDS: Thiamine (B-1) 100 MG TABLET PO SCH (07:45)
[2021-04-12] MEDS: Acyclovir 200 MG CAPSULE PO SCH ×2 (07:46→20:36)
[2021-04-12] MEDS: Zinc Sulfate 220 MG CAPSULE PO SCH (07:46)
[2021-04-12] MEDS: Apixaban 5 MG TABLET PO SCH ×2 (07:46→20:36)
[2021-04-12] MEDS: *HR* LORazepam 1 MG TABLET PO PRN ×3 (07:46→23:39)
[2021-04-12] MEDS: Gabapentin 300 MG CAPSULE PO SCH ×3 (07:47→20:36)
[2021-04-12] MEDS: Furosemide 20 MG/2 ML VIAL IVP SCH (22:22)
[2021-04-13 01:16] LABS: BUN/Creatinine Ratio 41 (6-26); Blood Urea Nitrogen 21 mg/dL (8-23); Calcium 7.9 mg/dL (8.6-10.3); Carbon Dioxide 27 mEq/L (23-29); Chloride 97 mEq/L (98-107); Glucose 202 mg/dL (70-105); Osmolality,Calculated 285 (280-300); Potassium 3.1 mEq/L (3.5-5.1); Sodium 133 mEq/L (136-145); eGFR For African Americans > 60 (> 60); eGFR For Non-African Americans > 60 (> 60)
[2021-04-13] MEDS: Ipratropium 1 PUFF INHALER IH SCH ×5 (04:03→20:34)
[2021-04-13] MEDS: Morphine Sulfate ER (12 HR) 15 MG TABLET.ER PO SCH ×2 (05:45→17:41)
[2021-04-13] MEDS: Zinc Sulfate 220 MG CAPSULE PO SCH (07:48)
[2021-04-13] MEDS: Cholecalciferol (D-3) 1,000 UNIT (25MCG) TABLET PO SCH (07:48)
[2021-04-13] MEDS: Acyclovir 200 MG CAPSULE PO SCH ×2 (07:48→19:55)
[2021-04-13] MEDS: Apixaban 5 MG TABLET PO SCH ×2 (07:49→19:55)
[2021-04-13] MEDS: Thiamine (B-1) 100 MG TABLET PO SCH (07:49)
[2021-04-13] MEDS: Dexamethasone Sodium Phos/PF 10 MG/ML VIAL IVP SCH (07:49)
[2021-04-13] MEDS: Furosemide 40 MG/4 ML VIAL IVP SCH (07:52)
[2021-04-13] MEDS: Gabapentin 300 MG CAPSULE PO SCH ×3 (07:55→19:55)
[2021-04-13] MEDS: *HR* OxyCODONE Immed Rel 5 MG TABLET PO PRN ×2 (12:53→23:06)
[2021-04-13] MEDS: Furosemide 40 MG TABLET PO SCH (17:41)
[2021-04-14] MEDS: Ipratropium 1 PUFF INHALER IH SCH ×7 (00:20→23:31)
[2021-04-14 02:47] LABS: Basophils % 0.1 %; Eosinophils % 0.1 %; Hematocrit 35.1 % (35.3-44.9); Hemoglobin 11.3 g/dL (11.5-15.4); Lymphocytes # 0.2 K/mcL (0.6-4.6); Mean Corpuscular HGB Conc 32.2 g/dL (31.6-35.5); Mean Corpuscular Hemoglobin 26.7 pg (28.0-33.3); Mean Platelet Volume 10.1 fL (9.4-12.4); Monocytes # 0.7 K/mcL (0.0-1.3); Monocytes % 6.7 %; Neutrophils # 9.7 K/mcL (1.6-8.9); Platelet Count 236 K/mcL (140-400); Red Blood Count 4.23 M/mcL (3.82-4.97); Red Cell Distribution Width 17.8 % (11.5-14.5); Segmented Neutrophils % 89.1 %; White Blood Count 10.9 K/mcL (4.3-11.1)
[2021-04-14 03:18] LABS: BUN/Creatinine Ratio 40 (6-26); Blood Urea Nitrogen 21 mg/dL (8-23); Calcium 7.9 mg/dL (8.6-10.3); Carbon Dioxide 27 mEq/L (23-29); Chloride 98 mEq/L (98-107); Glucose 128 mg/dL (70-105); Osmolality,Calculated 281 (280-300); Potassium 4.3 mEq/L (3.5-5.1); Sodium 133 mEq/L (136-145); eGFR For African Americans > 60 (> 60); eGFR For Non-African Americans > 60 (> 60)
[2021-04-14] MEDS: Morphine Sulfate ER (12 HR) 15 MG TABLET.ER PO SCH ×2 (05:42→18:25)
[2021-04-14] MEDS: Dexamethasone Sodium Phos/PF 10 MG/ML VIAL IVP SCH (09:10)
[2021-04-14] MEDS: Apixaban 5 MG TABLET PO SCH ×2 (09:11→20:17)
[2021-04-14] MEDS: Furosemide 40 MG TABLET PO SCH ×2 (09:11→17:00)
[2021-04-14] MEDS: Acyclovir 200 MG CAPSULE PO SCH ×2 (09:11→20:17)
[2021-04-14] MEDS: Zinc Sulfate 220 MG CAPSULE PO SCH (09:12)
[2021-04-14] MEDS: Thiamine (B-1) 100 MG TABLET PO SCH (09:12)
[2021-04-14] MEDS: *HR* OxyCODONE Immed Rel 5 MG TABLET PO PRN ×3 (09:12→23:53)
[2021-04-14] MEDS: Cholecalciferol (D-3) 1,000 UNIT (25MCG) TABLET PO SCH (09:12)
[2021-04-14] MEDS: Nystatin SUSP 5 ML UD.LIQ BC SCH ×4 (09:16→20:17)
[2021-04-14] MEDS: Gabapentin 300 MG CAPSULE PO SCH ×2 (09:17→20:17)
[2021-04-14] MEDS: Acetaminophen 325 MG TABLET PO PRN (14:02)
[2021-04-14] MEDS: *HR* LORazepam 1 MG TABLET PO PRN (17:00)
[2021-04-15 04:00] VITALS: TEMP 97.9
[2021-04-15] MEDS: Ipratropium 1 PUFF INHALER IH SCH ×4 (04:16→16:14)
[2021-04-15 05:29] LABS: BUN/Creatinine Ratio 45 (6-26); Blood Urea Nitrogen 24 mg/dL (8-23); Calcium 8.1 mg/dL (8.6-10.3); Carbon Dioxide 29 mEq/L (23-29); Chloride 98 mEq/L (98-107); Glucose 113 mg/dL (70-105); Osmolality,Calculated 283 (280-300); Potassium 4.4 mEq/L (3.5-5.1); Sodium 134 mEq/L (136-145); eGFR For African Americans > 60 (> 60); eGFR For Non-African Americans > 60 (> 60)
[2021-04-15] MEDS: Morphine Sulfate ER (12 HR) 15 MG TABLET.ER PO SCH (05:50)
[2021-04-15 06:51] VITALS: BP 110/63; PULSE 88
[2021-04-15] MEDS: Nystatin SUSP 5 ML UD.LIQ BC SCH ×3 (08:20→17:21)
[2021-04-15] MEDS: Cholecalciferol (D-3) 1,000 UNIT (25MCG) TABLET PO SCH (08:20)
[2021-04-15] MEDS: Zinc Sulfate 220 MG CAPSULE PO SCH (08:21)
[2021-04-15] MEDS: Thiamine (B-1) 100 MG TABLET PO SCH (08:21)
[2021-04-15] MEDS: Furosemide 40 MG TABLET PO SCH ×2 (08:21→17:21)
[2021-04-15] MEDS: *HR* LORazepam 1 MG TABLET PO PRN (08:21)
[2021-04-15] MEDS: Apixaban 5 MG TABLET PO SCH (08:21)
[2021-04-15] MEDS: *HR* OxyCODONE Immed Rel 5 MG TABLET PO PRN ×2 (11:10→17:23)
[2021-04-15] MEDS: Gabapentin 300 MG CAPSULE PO SCH ×2 (11:11→17:21)
[2021-04-15] MEDS: Dexamethasone Sodium Phos/PF 10 MG/ML VIAL IVP SCH (12:01)
[2021-04-15 15:39] VITALS: O2SAT 96
== END 2021-04-15 18:08 | disposition home health service (06) | DRG 177 ==
LOC: 3NENU → SUATTDRO 04-01 13:01 → 3ANU 04-01 19:32 → 2NENU 04-04 14:07
PROVIDERS: ADMIT Pharmacist; ATTEND Internal Medicine

== ENCOUNTER 2021-07-25 22:26 | Inpatient (IN) ==
[2021-07-26] MEDS ORDERED: Ondansetron 4 MG/2 ML VIAL IVP PRN (01:39)
[2021-07-26] MEDS ORDERED: Acetaminophen 325 MG TABLET PO PRN ×2 (01:39→07:34)
[2021-07-26] MEDS ORDERED: Naloxone 0.4 MG/ML INJ IVP PRN (01:39)
[2021-07-26 02:17] LABS: Basophils % 0.2 %; Eosinophils # 0.1 K/mcL (0.0-0.6); Eosinophils % 1.2 %; Hematocrit 31.7 % (35.3-44.9); Hemoglobin 10.2 g/dL (11.5-15.4); Immature Granulocytes % 0.4 % (0-4); Lymphocytes # 0.3 K/mcL (0.6-4.6); Lymphocytes % 5.4 %; Mean Corpuscular HGB Conc 32.2 g/dL (31.6-35.5); Mean Corpuscular Hemoglobin 29.7 pg (28.0-33.3); Mean Corpuscular Volume 92.4 fL (83.0-100.0); Mean Platelet Volume 11.5 fL (9.4-12.4); Monocytes # 1.3 K/mcL (0.0-1.3); Monocytes % 24.7 %; Neutrophils # 3.5 K/mcL (1.6-8.9); Platelet Count 143 K/mcL (140-400); Red Blood Count 3.43 M/mcL (3.82-4.97); Segmented Neutrophils % 68.1 %; White Blood Count 5.2 K/mcL (4.3-11.1)
[2021-07-26 02:28] LABS: INR 1.4; Prothrombin Time 15.1 Seconds (9.4-12.1)
[2021-07-26 02:37] LABS: Alanine Aminotransferase 9 Units/L (7-52); Albumin 2.8 g/dL (3.5-5.7); Albumin/Globulin Ratio 0.7 (1.1-2.2); Alkaline Phosphatase 63 Units/L (34-104); Aspartate Amino Transferase 15 Units/L (13-39); BUN/Creatinine Ratio 28 (6-26); Bilirubin,Direct 0.1 mg/dL (0.0-0.2); Bilirubin,Indirect 0.4 mg/dL (0.0-1.0); Bilirubin,Total 0.5 mg/dL (0.3-1.0); Blood Urea Nitrogen 19 mg/dL (8-23); Calcium 9.3 mg/dL (8.6-10.3); Carbon Dioxide 23 mEq/L (23-29); Chloride 108 mEq/L (98-107); Cholesterol 145 mg/dL (< 200); Globulin 4.1 g/dL (2.4-3.5); Glucose 101 mg/dL (70-105); HDL Cholesterol 48 mg/dL (40-59); LDL Cholesterol,Calculated 74 mg/dL (< 100); Magnesium 1.8 mg/dL (1.6-2.6); Osmolality,Calculated 290 (280-300); Potassium 3.8 mEq/L (3.5-5.1); Sodium 139 mEq/L (136-145); Total Protein 6.9 g/dL (6.4-8.9); Triglycerides 117 mg/dL (< 150); Troponin I < 0.03 ng/mL (< 0.04); eGFR For African Americans > 60 (> 60); eGFR For Non-African Americans > 60 (> 60)
[2021-07-26] MEDS: 0.9 % Sodium Chloride 1,000 ML IVC SCH ×2 (02:44→12:32)
[2021-07-26] MEDS ORDERED: *HR* OxyCODONE Immed Rel 5 MG TABLET PO PRN (03:06)
[2021-07-26] MEDS: Cholecalciferol (D-3) 1,000 UNIT (25MCG) TABLET PO SCH (08:52)
[2021-07-26] MEDS: cefTRIAXone 1,000 MG in 0.9 % Sodium Chloride Mini Bag 100 ML IVPB SCH (08:53)
[2021-07-26] MEDS ORDERED: Apixaban 5 MG TABLET PO SCH (09:00)
[2021-07-26] MEDS: Morphine Sulfate ER (12 HR) 15 MG TABLET.ER PO SCH ×2 (09:11→20:57)
[2021-07-26] MEDS: *HR* OxyCODONE Immed Rel 5 MG TABLET PO PRN ×2 (10:33→18:12)
[2021-07-26] MEDS ORDERED: GADOBUTROL 30 MMOL/30 ML VIAL IVP ONE (15:50)
[2021-07-26] MEDS: Apixaban 5 MG TABLET PO SCH (20:57)
[2021-07-27] MEDS: *HR* OxyCODONE Immed Rel 5 MG TABLET PO PRN ×2 (01:45→12:00)
[2021-07-27 05:08] LABS: Basophils % 0.4 %; Eosinophils # 0.1 K/mcL (0.0-0.6); Eosinophils % 2.2 %; Hematocrit 30.8 % (35.3-44.9); Hemoglobin 10.1 g/dL (11.5-15.4); Immature Granulocytes % 0.7 % (0-4); Lymphocytes # 0.4 K/mcL (0.6-4.6); Lymphocytes % 6.8 %; Mean Corpuscular HGB Conc 32.8 g/dL (31.6-35.5); Mean Corpuscular Hemoglobin 30.3 pg (28.0-33.3); Mean Corpuscular Volume 92.5 fL (83.0-100.0); Mean Platelet Volume 12.4 fL (9.4-12.4); Monocytes % 18.1 %; Neutrophils # 3.9 K/mcL (1.6-8.9); Platelet Count 155 K/mcL (140-400); Red Blood Count 3.33 M/mcL (3.82-4.97); Red Cell Distribution Width 16.3 % (11.5-14.5); Segmented Neutrophils % 71.8 %; White Blood Count 5.4 K/mcL (4.3-11.1)
[2021-07-27 05:29] LABS: BUN/Creatinine Ratio 23 (6-26); Blood Urea Nitrogen 12 mg/dL (8-23); Calcium 8.8 mg/dL (8.6-10.3); Carbon Dioxide 24 mEq/L (23-29); Chloride 107 mEq/L (98-107); Glucose 75 mg/dL (70-105); Magnesium 1.6 mg/dL (1.6-2.6); Osmolality,Calculated 282 (280-300); Potassium 3.5 mEq/L (3.5-5.1); Sodium 137 mEq/L (136-145); eGFR For African Americans > 60 (> 60); eGFR For Non-African Americans > 60 (> 60)
[2021-07-27] MEDS: cefTRIAXone 1,000 MG in 0.9 % Sodium Chloride Mini Bag 100 ML IVPB SCH (09:10)
[2021-07-27] MEDS: Morphine Sulfate ER (12 HR) 15 MG TABLET.ER PO SCH ×2 (09:11→21:24)
[2021-07-27] MEDS: Apixaban 5 MG TABLET PO SCH ×2 (09:11→21:24)
[2021-07-27] MEDS: Cholecalciferol (D-3) 1,000 UNIT (25MCG) TABLET PO SCH (09:12)
[2021-07-27] MEDS ORDERED: polyethylene glycoL 3350 17 GM POWD.PACK PO SCH (11:15)
[2021-07-27] MEDS: Sennosides/Docusate Sodium TABLET PO SCH ×2 (11:59→21:24)
[2021-07-27] MEDS: lisinopriL 10 MG TABLET PO SCH (12:00)
[2021-07-27] MEDS: dexAMETHasone 4 MG TABLET PO SCH (15:08)
[2021-07-27] MEDS: Gabapentin 300 MG CAPSULE PO SCH ×2 (15:08→21:24)
[2021-07-27] MEDS: polyethylene glycoL 3350 17 GM POWD.PACK PO SCH (21:24)
[2021-07-27] MEDS: Acyclovir 200 MG CAPSULE PO SCH (21:24)
[2021-07-28 01:59] LABS: Basophils % 0.2 %; Hematocrit 33.8 % (35.3-44.9); Hemoglobin 11.2 g/dL (11.5-15.4); Immature Granulocytes % 0.6 % (0-4); Lymphocytes # 0.1 K/mcL (0.6-4.6); Lymphocytes % 1.5 %; Mean Corpuscular HGB Conc 33.1 g/dL (31.6-35.5); Mean Corpuscular Hemoglobin 29.9 pg (28.0-33.3); Mean Corpuscular Volume 90.4 fL (83.0-100.0); Mean Platelet Volume 11.5 fL (9.4-12.4); Monocytes % 0.8 %; Platelet Count 186 K/mcL (140-400); Red Blood Count 3.74 M/mcL (3.82-4.97); Red Cell Distribution Width 15.9 % (11.5-14.5); Segmented Neutrophils % 96.9 %; White Blood Count 5.3 K/mcL (4.3-11.1)
[2021-07-28 02:01] LABS: Neutrophils # 5.1 K/mcL (1.6-8.9)
[2021-07-28 02:20] LABS: BUN/Creatinine Ratio 28 (6-26); Blood Urea Nitrogen 15 mg/dL (8-23); Calcium 8.8 mg/dL (8.6-10.3); Carbon Dioxide 20 mEq/L (23-29); Chloride 105 mEq/L (98-107); Glucose 109 mg/dL (70-105); Osmolality,Calculated 279 (280-300); Sodium 134 mEq/L (136-145); eGFR For African Americans > 60 (> 60); eGFR For Non-African Americans > 60 (> 60)
[2021-07-28 03:01] LABS: Platelet Estimate Normal (Normal)
[2021-07-28] MEDS: cefTRIAXone 1,000 MG in 0.9 % Sodium Chloride Mini Bag 100 ML IVPB SCH ×3 (08:45→09:43)
[2021-07-28] MEDS: Gabapentin 300 MG CAPSULE PO SCH ×5 (08:46→21:33)
[2021-07-28] MEDS: Morphine Sulfate ER (12 HR) 15 MG TABLET.ER PO SCH ×4 (08:46→21:33)
[2021-07-28] MEDS: Apixaban 5 MG TABLET PO SCH ×4 (08:46→21:34)
[2021-07-28] MEDS: lisinopriL 10 MG TABLET PO SCH ×3 (08:47→09:42)
[2021-07-28] MEDS: Cholecalciferol (D-3) 1,000 UNIT (25MCG) TABLET PO SCH ×3 (08:47→09:42)
[2021-07-28] MEDS: Sennosides/Docusate Sodium TABLET PO SCH ×4 (08:47→21:34)
[2021-07-28] MEDS: Acyclovir 200 MG CAPSULE PO SCH ×4 (08:47→21:33)
[2021-07-28] MEDS: polyethylene glycoL 3350 17 GM POWD.PACK PO SCH ×3 (08:48→21:33)
[2021-07-28] MEDS: dexAMETHasone 4 MG TABLET PO SCH (13:41)
[2021-07-28] MEDS: POMALYST 3 MG PO SCH (17:20)
[2021-07-29 05:44] LABS: Basophils % 0.2 %; Eosinophils # 0.1 K/mcL (0.0-0.6); Eosinophils % 0.6 %; Hematocrit 34.6 % (35.3-44.9); Hemoglobin 10.8 g/dL (11.5-15.4); Immature Granulocytes % 0.6 % (0-4); Lymphocytes # 0.4 K/mcL (0.6-4.6); Lymphocytes % 3.5 %; Mean Corpuscular HGB Conc 31.2 g/dL (31.6-35.5); Mean Platelet Volume 10.9 fL (9.4-12.4); Monocytes # 1.8 K/mcL (0.0-1.3); Monocytes % 17.5 %; Neutrophils # 7.9 K/mcL (1.6-8.9); Platelet Count 229 K/mcL (140-400); Red Blood Count 3.72 M/mcL (3.82-4.97); Red Cell Distribution Width 16.5 % (11.5-14.5); Segmented Neutrophils % 77.6 %
[2021-07-29 05:48] LABS: White Blood Count 10.2 K/mcL (4.3-11.1)
[2021-07-29] MEDS: cefTRIAXone 1,000 MG in 0.9 % Sodium Chloride Mini Bag 100 ML IVPB SCH ×2 (10:31→10:58)
[2021-07-29] MEDS: Sennosides/Docusate Sodium TABLET PO SCH ×2 (10:32→21:39)
[2021-07-29] MEDS: Cholecalciferol (D-3) 1,000 UNIT (25MCG) TABLET PO SCH (10:32)
[2021-07-29] MEDS: polyethylene glycoL 3350 17 GM POWD.PACK PO SCH ×2 (10:32→21:34)
[2021-07-29] MEDS: lisinopriL 10 MG TABLET PO SCH (10:32)
[2021-07-29] MEDS: Acyclovir 200 MG CAPSULE PO SCH ×2 (10:32→21:37)
[2021-07-29] MEDS: Gabapentin 300 MG CAPSULE PO SCH ×3 (10:33→21:39)
[2021-07-29] MEDS: Apixaban 5 MG TABLET PO SCH ×2 (10:33→21:38)
[2021-07-29] MEDS: Morphine Sulfate ER (12 HR) 15 MG TABLET.ER PO SCH ×2 (10:33→21:39)
[2021-07-29] MEDS: POMALYST 3 MG PO SCH (10:42)
[2021-07-29 12:12] LABS: BUN/Creatinine Ratio 31 (6-26); Blood Urea Nitrogen 20 mg/dL (8-23); Calcium 8.9 mg/dL (8.6-10.3); Carbon Dioxide 24 mEq/L (23-29); Chloride 105 mEq/L (98-107); Glucose 106 mg/dL (70-105); Osmolality,Calculated 285 (280-300); Potassium 3.4 mEq/L (3.5-5.1); Sodium 136 mEq/L (136-145); eGFR For African Americans > 60 (> 60); eGFR For Non-African Americans > 60 (> 60)
[2021-07-29] MEDS: dexAMETHasone 4 MG TABLET PO SCH (15:02)
[2021-07-29] MEDS ORDERED: Haloperidol Lactate 5 MG/ML VIAL IVP ONE (15:58)
[2021-07-29] MEDS: QUEtiapine Fumarate 25 MG TABLET PO SCH (21:37)
[2021-07-30 01:38] LABS: Basophils % 0.4 %; Eosinophils # 0.1 K/mcL (0.0-0.6); Hemoglobin 10.1 g/dL (11.5-15.4); Immature Granulocytes % 0.7 % (0-4); Lymphocytes # 0.3 K/mcL (0.6-4.6); Mean Corpuscular HGB Conc 32.6 g/dL (31.6-35.5); Mean Platelet Volume 10.7 fL (9.4-12.4); Monocytes # 1.5 K/mcL (0.0-1.3); Monocytes % 17.9 %; Neutrophils # 6.2 K/mcL (1.6-8.9); Platelet Count 239 K/mcL (140-400); Red Blood Count 3.37 M/mcL (3.82-4.97); Red Cell Distribution Width 16.6 % (11.5-14.5); White Blood Count 8.1 K/mcL (4.3-11.1)
[2021-07-30 01:59] LABS: Blood Urea Nitrogen 20 mg/dL (8-23); Carbon Dioxide 25 mEq/L (23-29); Chloride 107 mEq/L (98-107); Glucose 117 mg/dL (70-105); Osmolality,Calculated 288 (280-300); Potassium 4.2 mEq/L (3.5-5.1); Sodium 137 mEq/L (136-145)
[2021-07-30 02:17] LABS: BUN/Creatinine Ratio 28 (6-26); eGFR For African Americans > 60 (> 60); eGFR For Non-African Americans > 60 (> 60)
[2021-07-30] MEDS: POMALYST 3 MG PO SCH (10:24)
[2021-07-30] MEDS: lisinopriL 10 MG TABLET PO SCH (10:25)
[2021-07-30] MEDS: Apixaban 5 MG TABLET PO SCH ×2 (10:25→22:23)
[2021-07-30] MEDS: Acyclovir 200 MG CAPSULE PO SCH ×2 (10:26→22:24)
[2021-07-30] MEDS: Gabapentin 300 MG CAPSULE PO SCH ×3 (10:26→22:23)
[2021-07-30] MEDS: Morphine Sulfate ER (12 HR) 15 MG TABLET.ER PO SCH ×2 (10:26→22:23)
[2021-07-30] MEDS: Cholecalciferol (D-3) 1,000 UNIT (25MCG) TABLET PO SCH (10:28)
[2021-07-30] MEDS: Sennosides/Docusate Sodium TABLET PO SCH ×2 (10:28→22:23)
[2021-07-30] MEDS: polyethylene glycoL 3350 17 GM POWD.PACK PO SCH ×2 (10:30→22:23)
[2021-07-30] MEDS: cefTRIAXone 1,000 MG in 0.9 % Sodium Chloride Mini Bag 100 ML IVPB SCH (12:37)
[2021-07-30 18:48] LABS: Bilirubin,Urine Negative (Negative); Blood,Urine Negative (Negative); Clarity,Urine Clear (Clear); Color,Urine Yellow (Yellow); Glucose,Urine (UA) Normal (Normal); Ketones,Urine Negative (Negative); Leukocyte Esterase,Urine Trace (Negative); Mucus,Urine Few per lpf (None-Few); Nitrite,Urine Negative (Negative); PH,Urine 5.5 pH Units (5.0-8.0); Protein,Urine 30 mg/dL (Neg-Trace); Specific Gravity,Urine 1.022 (1.010-1.025); Squamous Epithelial Cell,Urine Few per hpf (None-Few); Urobilinogen,Urine Normal (Normal)
[2021-07-30] MEDS: QUEtiapine Fumarate 25 MG TABLET PO SCH (22:23)
[2021-07-30 23:29] LABS: ABG Base Excess 3 mEq/L (-2 to 3); ABG HCO3 26 mEq/L (21-27); ABG Oxygen Saturation 94 % (95-98); ABG PCO2 32 mmHg (35-45); ABG PH 7.51 pH Units (7.32-7.45); ABG PO2 63 mmHg (85-104); ABG TCO2 27 mEq/L (20-26)
[2021-07-31 03:15] LABS: Basophils % 0.2 %; Eosinophils % 0.5 %; Hematocrit 32.3 % (35.3-44.9); Hemoglobin 10.2 g/dL (11.5-15.4); Immature Granulocytes % 0.7 % (0-4); Lymphocytes # 0.1 K/mcL (0.6-4.6); Lymphocytes % 2.3 %; Mean Corpuscular HGB Conc 31.6 g/dL (31.6-35.5); Mean Corpuscular Hemoglobin 29.1 pg (28.0-33.3); Mean Corpuscular Volume 92.3 fL (83.0-100.0); Mean Platelet Volume 10.9 fL (9.4-12.4); Monocytes # 0.9 K/mcL (0.0-1.3); Monocytes % 14.9 %; Platelet Count 267 K/mcL (140-400); Red Cell Distribution Width 17.1 % (11.5-14.5); Segmented Neutrophils % 81.4 %; White Blood Count 6.1 K/mcL (4.3-11.1)
[2021-07-31 03:34] LABS: Albumin 2.7 g/dL (3.5-5.7); BUN/Creatinine Ratio 28 (6-26); Blood Urea Nitrogen 15 mg/dL (8-23); Calcium 9.3 mg/dL (8.6-10.3); Carbon Dioxide 24 mEq/L (23-29); Chloride 109 mEq/L (98-107); Glucose 90 mg/dL (70-105); Osmolality,Calculated 286 (280-300); Potassium 4.1 mEq/L (3.5-5.1); Sodium 138 mEq/L (136-145); eGFR For African Americans > 60 (> 60); eGFR For Non-African Americans > 60 (> 60)
[2021-07-31] MEDS: Morphine Sulfate ER (12 HR) 15 MG TABLET.ER PO SCH ×2 (08:09→21:43)
[2021-07-31] MEDS: Sennosides/Docusate Sodium TABLET PO SCH ×2 (08:13→21:43)
[2021-07-31] MEDS: POMALYST 3 MG PO SCH (08:13)
[2021-07-31] MEDS: Apixaban 5 MG TABLET PO SCH ×2 (08:14→21:43)
[2021-07-31] MEDS: Acyclovir 200 MG CAPSULE PO SCH ×2 (08:14→21:44)
[2021-07-31] MEDS: Gabapentin 300 MG CAPSULE PO SCH ×3 (08:14→21:43)
[2021-07-31] MEDS: Cholecalciferol (D-3) 1,000 UNIT (25MCG) TABLET PO SCH (08:14)
[2021-07-31] MEDS: lisinopriL 10 MG TABLET PO SCH (08:14)
[2021-07-31] MEDS: polyethylene glycoL 3350 17 GM POWD.PACK PO SCH (08:15)
[2021-07-31] MEDS: *HR* OxyCODONE Immed Rel 5 MG TABLET PO PRN ×2 (10:20→17:20)
[2021-07-31] MEDS: QUEtiapine Fumarate 25 MG TABLET PO SCH (21:44)
[2021-08-01 06:14] LABS: Eosinophils # 0.1 K/mcL (0.0-0.6); Eosinophils % 1.1 %; Hematocrit 29.2 % (35.3-44.9); Hemoglobin 9.2 g/dL (11.5-15.4); Immature Granulocytes % 0.8 % (0-4); Lymphocytes # 0.2 K/mcL (0.6-4.6); Lymphocytes % 3.3 %; Mean Corpuscular HGB Conc 31.5 g/dL (31.6-35.5); Mean Corpuscular Hemoglobin 29.5 pg (28.0-33.3); Mean Corpuscular Volume 93.6 fL (83.0-100.0); Mean Platelet Volume 10.3 fL (9.4-12.4); Neutrophils # 5.3 K/mcL (1.6-8.9); Platelet Count 284 K/mcL (140-400); Red Blood Count 3.12 M/mcL (3.82-4.97); Red Cell Distribution Width 16.6 % (11.5-14.5); Segmented Neutrophils % 79.8 %; White Blood Count 6.6 K/mcL (4.3-11.1)
[2021-08-01] MEDS: Morphine Sulfate ER (12 HR) 15 MG TABLET.ER PO SCH ×2 (08:39→20:42)
[2021-08-01] MEDS: Cholecalciferol (D-3) 1,000 UNIT (25MCG) TABLET PO SCH (08:39)
[2021-08-01] MEDS: Acyclovir 200 MG CAPSULE PO SCH ×2 (08:39→20:35)
[2021-08-01] MEDS: Apixaban 5 MG TABLET PO SCH ×2 (08:39→20:36)
[2021-08-01] MEDS: Sennosides/Docusate Sodium TABLET PO SCH ×2 (08:39→20:36)
[2021-08-01] MEDS: Gabapentin 300 MG CAPSULE PO SCH ×3 (08:39→20:35)
[2021-08-01] MEDS: POMALYST 3 MG PO SCH (08:40)
[2021-08-01 09:04] LABS: BUN/Creatinine Ratio 32 (6-26); Blood Urea Nitrogen 20 mg/dL (8-23); Carbon Dioxide 23 mEq/L (23-29); Chloride 106 mEq/L (98-107); Glucose 112 mg/dL (70-105); Osmolality,Calculated 283 (280-300); Potassium 3.7 mEq/L (3.5-5.1); Sodium 135 mEq/L (136-145); eGFR For African Americans > 60 (> 60); eGFR For Non-African Americans > 60 (> 60)
[2021-08-01] MEDS: *HR* OxyCODONE Immed Rel 5 MG TABLET PO PRN ×2 (11:08→23:26)
[2021-08-01] MEDS ORDERED: 0.9 % Sodium Chloride 500 ML IVC PRN (11:53)
[2021-08-01] MEDS ORDERED: Fosfomycin Tromethamine 3 GM Packet PO ONE (14:00)
[2021-08-01] MEDS: QUEtiapine Fumarate 25 MG TABLET PO SCH (20:35)
[2021-08-02 07:10] VITALS: BP 87/56; PULSE 89; TEMP 99; O2SAT 92
[2021-08-02] MEDS: Apixaban 5 MG TABLET PO SCH (08:41)
[2021-08-02] MEDS: Cholecalciferol (D-3) 1,000 UNIT (25MCG) TABLET PO SCH (08:41)
[2021-08-02] MEDS: Morphine Sulfate ER (12 HR) 15 MG TABLET.ER PO SCH (08:42)
[2021-08-02] MEDS: Gabapentin 300 MG CAPSULE PO SCH (08:42)
[2021-08-02] MEDS: Sennosides/Docusate Sodium TABLET PO SCH (08:42)
[2021-08-02] MEDS: Acyclovir 200 MG CAPSULE PO SCH (08:42)
[2021-08-02 12:21] LABS: Kappa Qnt Free Light Chains 441.51 mg/L (3.30-19.40); Lambda Qnt Free Light Chains <1.46 mg/L (5.71-26.30)
[2021-08-02] MEDS ORDERED: Apixaban 5 MG TABLET PO SCH (21:00)
[2021-08-03 19:18] LABS: Alpha 2 Globulin (PEP) 0.89 g/dL (0.48-1.05); Beta Globulin (PEP) 0.63 g/dL (0.48-1.10)
[2021-08-04 09:10] LABS: IFE Reflexed IFE Done; Immunoglobulin A 3 mg/dL (68-408); Immunoglobulin G 2416 mg/dL (768-1632); Immunoglobulin M < 10 mg/dL (35-263)
== END 2021-08-02 14:48 | disposition hospice, home (50) | DRG 689 ==
LOC: 3ANU → SUATTDRO 07-26 01:20
PROVIDERS: ADMIT Student in an Organized Health Care Education/Training Program; ATTEND Family Medicine